=== PATIENT | male | born 1960 | race Caucasian/White ===

== ENCOUNTER 2016-09-02 15:06 | Emergency (ER) | payer OTHER ==
[~2016-09-02] VITALS: Ht 185.4 cm; Wt 72.6 kg
[~2016-09-02 15:06] MED LIST: ATIVAN1 MG PO; CLARITIN10 MG PO; FLONASE ALLERG9.9 ML NAS; HYDROCODONE BIT1 T11 PO; LOMOTIL 0.025 M1 TA1 PO; PREDNISONE10 MG PO; ROBITUSSIN AC 110 ML PO; VICODIN ES 7501 TAB PO; ZITHROMAX250 MG PO; ZOFRAN ODT4 MG SL
[2016-09-02] MEDS ORDERED: NAPROSYN500 MG PO (15:25)
[2016-09-02] MEDS ORDERED: 'PARAFON FORTE500 M1 PO (15:25)
== END 2016-09-02 15:55 | disposition home or self-care (01) ==
LOC: ED 15:06
DX: M54.14 Radiculopathy, thoracic region (principal); R03.0 Elevated blood-pressure reading, without diagnosis of hypertension; F41.9 Anxiety disorder, unspecified; F17.200 Nicotine dependence, unspecified, uncomplicated

== ENCOUNTER 2017-04-15 16:28 | Emergency (ER) | payer OTHER ==
[~2017-04-15] VITALS: Ht 185.4 cm; Wt 74.8 kg
[~2017-04-15 16:28] MED LIST changes: +'PARAFON FORTE500 M1 PO; +CYCLOBENZAPRINE10 MG PO; +FLEXERIL10 MG PO; +MEDROL DOSEPAK4 MG PO; +MOTRIN800 MG PO; +NAPROSYN500 MG PO; +NKHM; +ROBAXIN750 MG PO; +TRAMADOL HCL50 MG PO; +VICODIN 5/500 505 MG PO; +ZOFRAN4 MG PO
[2017-04-15 17:23] LABS: BASO # 0.1 10*3/uL (0.0-0.1); BASO % 0.4 % (0.0-1.0); EOS # 0.1 10*3/uL (0.0-0.4); EOS % 0.8 % (1.0-4.0); HEMOGLOBIN 13.3 g/dl (14.0-18.0); LYMPH # 2.2 10*3/uL (1.3-4.4); LYMPH % 13.9 % (27.0-41.0); MEAN CELL VOLUME 94.2 fl (80.0-94.0); MEAN CORPUSCULAR HGB 32.1 pg (27.0-31.0); MEAN CORPUSCULAR HGB CONC 34.1 g/dl (33.0-37.0); MEAN PLATELET VOLUME 11.7 fl (9.6-12.3); MONO % 6.1 % (3.0-9.0); NEUT # 12.3 10*3/uL (2.3-7.9); NEUT % 78.4 % (47.0-73.0); PLATELET COUNT AUTOMATED 166 10*3/uL (130-400); RED BLOOD COUNT 4.14 10*6/uL (4.50-5.90); RED CELL DISTRI WIDTH 13.2 % (0-14.5); WHITE BLOOD COUNT 15.7 10*3/uL (4.8-10.8)
[2017-04-15 17:35] LABS: BUN 13 mg/dl (7-24); CHLORIDE 105 mmol/L (98-107); CREATININE 0.79 mg/dL (0.70-1.30); POTASSIUM 3.9 mmol/L (3.5-5.1); SODIUM 139 mmol/L (136-145)
[2017-04-15] MEDS ORDERED: CLINDAMYCIN HC300 MG PO (19:36)
== END 2017-04-15 21:43 | disposition left against medical advice (07) ==
LOC: ED 16:28
PROVIDERS: Physician Assistant
DX: A41.9 Sepsis, unspecified organism (principal); L05.91 Pilonidal cyst without abscess; F17.200 Nicotine dependence, unspecified, uncomplicated; Z79.899 Other long term (current) drug therapy

== ENCOUNTER 2017-07-06 12:50 | Emergency (ER) | payer OTHER ==
[~2017-07-06] VITALS: Ht 185.4 cm; Wt 74.8 kg
[~2017-07-06 12:50] MED LIST changes: +CLINDAMYCIN HC300 MG PO
[2017-07-06] MEDS ORDERED: OMNICEF300 MG PO (13:56)
== END 2017-07-06 14:13 | disposition home or self-care (01) ==
LOC: ED 12:50
DX: J01.10 Acute frontal sinusitis, unspecified (principal); R03.0 Elevated blood-pressure reading, without diagnosis of hypertension; F17.200 Nicotine dependence, unspecified, uncomplicated

== ENCOUNTER 2017-11-24 17:38 | Emergency (ER) | payer OTHER ==
[~2017-11-24] VITALS: Wt 74.8 kg
[~2017-11-24 17:38] MED LIST changes: +OMNICEF300 MG PO
[2017-11-24] MEDS ORDERED: FLONASE ALLERG9.9 ML NS (17:53)
[2017-11-24] MEDS ORDERED: ZYRTEC10 MG PO (17:53)
[2017-11-24] MEDS ORDERED: AUGMENTIN 875875 MG PO (17:53)
== END 2017-11-24 18:10 | disposition home or self-care (01) ==
LOC: ED 17:38
DX: J01.10 Acute frontal sinusitis, unspecified (principal); Z79.899 Other long term (current) drug therapy

== ENCOUNTER 2017-12-21 02:01 | Inpatient (IN) | payer SELFPAY ==
[2017-12-21] VITALS (15 sets, daily range): BP systolic 123–156; BP diastolic 66–98
[~2017-12-21] VITALS: Ht 187.9 cm; Wt 79.4 kg
--- NOTE | ~2017-12-21 | CON ---
[place], [place] REPORT OF CONSULTATION NAME: HERLINDA MURPHY UNIT #: [id number] ROOM: [facility] DOCTOR: ENRICO DOWLING MD BIRTHDATE: [birth year] DOS: 12/21/2017 CHIEF COMPLAINT: "I have been here since the " HISTORY OF PRESENT ILLNESS: This is a 57-year-old white male who presented to the Emergency Room by private vehicle after what was a possible suicide attempt. Per the patient at that time, he had been consuming alcohol the entire day, drinking approximately 15-20 beers. 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 After realizing what he had done, he made certain he made it to the Emergency Room to be evaluated. The patient admits to a history of depression, but denies ever having a suicide attempt. At that time that he was more lucid in the Emergency Room, he denied that this was an attempt to commit suicide, it was just a mistake. PAST MEDICAL HISTORY: Remarkable for allergic rhinitis, hypertension, gastroenteritis, pilonidal cyst. MENTAL STATUS: My mental status was severely limited due to the fact that the patient just received an IV Ativan push. Nurses report that he has had increased visual hallucination and has been somewhat combative. For me, he was very somnolent and all I was able to get out of him was that he believes he has been here since the . He then rolled over and went back to sleep. Multiple attempts to reengage him were unsuccessful. DIAGNOSIS: Major depression, recurrent, by history. PLAN: Carmita Gamez is to be in later to evaluate him. At that point of time, if Carmita feels that he requires further inpatient stabilization, please have her notify me and I will be happy to admit him to the [facility] for further evaluation and treatment. If not, he should have outpatient followup, both for the depression and for the substance abuse if he is willing. ENRICO DOWLING MD CM:CONSTR:REPORT OF CONSULTATION 1013 12/21/17 1032 interface
[~2017-12-21 02:01] MED LIST changes: +AUGMENTIN 875875 MG PO; +FLONASE ALLERG9.9 ML NS; +ZYRTEC10 MG PO
[2017-12-21 02:54] LABS: BASO # 0.1 10*3/uL (0.0-0.1); EOS # 0.3 10*3/uL (0.0-0.4); EOS % 3.3 % (1.0-4.0); HEMATOCRIT 42.2 % (42.0-52.0); HEMOGLOBIN 14.7 g/dl (14.0-18.0); LYMPH # 3.3 10*3/uL (1.3-4.4); LYMPH % 38.8 % (27.0-41.0); MEAN CELL VOLUME 90.6 fl (80.0-94.0); MEAN CORPUSCULAR HGB 31.5 pg (27.0-31.0); MEAN CORPUSCULAR HGB CONC 34.8 g/dl (33.0-37.0); MEAN PLATELET VOLUME 10.8 fl (9.6-12.3); MONO # 0.6 10*3/uL (0.1-1.0); MONO % 7.1 % (3.0-9.0); NEUT # 4.2 10*3/uL (2.3-7.9); NEUT % 49.6 % (47.0-73.0); PLATELET COUNT AUTOMATED 190 10*3/uL (130-400); RED BLOOD COUNT 4.66 10*6/uL (4.50-5.90); WHITE BLOOD COUNT 8.4 10*3/uL (4.8-10.8)
[2017-12-21 03:11] LABS: ACETAMINOPHEN (TYLENOL) < 2.0 ug/ml (10-30); ALBUMIN 3.8 gm/dl (3.1-4.5); ALKALINE PHOSPHATASE 78 U/L (45-117); BUN 7 mg/dl (7-24); CHLORIDE 98 mmol/L (98-107); CREATININE 0.79 mg/dL (0.70-1.30); POTASSIUM 3.3 mmol/L (3.5-5.1); SGOT/AST 20 IU/L (3-35); SGPT/ALT 23 U/L (12-78); SODIUM 132 mmol/L (136-145); TOTAL PROTEIN 6.9 gm/dL (6.4-8.2); TROPONIN I < 0.015 ng/ml (<0.045)
[2017-12-21] MEDS ORDERED: ZESTRIL,PRINIVIL5 MG PO (04:57)
[2017-12-21 05:21] LABS: BILIRUBIN NEGATIVE (NEGATIVE); BLOOD NEGATIVE (NEGATIVE); CLARITY CLEAR (CLEAR); COLOR YELLOW (YELLOW); GLUCOSE NEGATIVE (NEGATIVE); KETONE NEGATIVE (NEGATIVE); LEUKO ESTERASE NEGATIVE (NEGATIVE); NITRITE NEGATIVE (NEGATIVE); PH 6.5 (5.0-9.0); SPECIFIC GRAVITY <= 1.005 (1.005-1.030); UROBILINOGEN 0.2 E.U./dl (0.2-1.0)
[2017-12-21 05:27] LABS: BACTERIA TRACE; RBC 0-2 rbc/hpf (0-2)
[2017-12-21 05:31] LABS: URINE AMPHETAMINES < 1000 (1000ng/ml); URINE BARBITURATES < 200 (200ng/ml); URINE BENZODIAZEPINES < 200 (200ng/ml); URINE CANNABINOIDS (THC) < 50 (50ng/ml); URINE COCAINE > 300 (300ng/ml); URINE METHADONE < 300 (300ng/ml); URINE OPIATES < 300 (300ng/ml)
[2017-12-21 05:32] LABS: URINE PHENCYCLIDINE < 25 (25ng/ml)
[2017-12-22] VITALS: BP 120/72; BP 123/75
[2017-12-22 04:00] VITALS: BP 116/80
[2017-12-22 06:33] LABS: BASO # 0.1 10*3/uL (0.0-0.1); BASO % 0.8 % (0.0-1.0); EOS # 0.4 10*3/uL (0.0-0.4); EOS % 3.8 % (1.0-4.0); HEMATOCRIT 43.5 % (42.0-52.0); HEMOGLOBIN 14.6 g/dl (14.0-18.0); LYMPH # 2.4 10*3/uL (1.3-4.4); LYMPH % 23.8 % (27.0-41.0); MEAN CELL VOLUME 93.3 fl (80.0-94.0); MEAN CORPUSCULAR HGB 31.3 pg (27.0-31.0); MEAN CORPUSCULAR HGB CONC 33.6 g/dl (33.0-37.0); MEAN PLATELET VOLUME 11.4 fl (9.6-12.3); MONO # 0.6 10*3/uL (0.1-1.0); MONO % 6.2 % (3.0-9.0); NEUT # 6.6 10*3/uL (2.3-7.9); NEUT % 64.9 % (47.0-73.0); PLATELET COUNT AUTOMATED 185 10*3/uL (130-400); RED BLOOD COUNT 4.66 10*6/uL (4.50-5.90); RED CELL DISTRI WIDTH 13.2 % (0-14.5); WHITE BLOOD COUNT 10.2 10*3/uL (4.8-10.8)
[2017-12-22 06:37] LABS: BUN 12 mg/dl (7-24); CHLORIDE 105 mmol/L (98-107); CHOLESTEROL 177 mg/dL (<200); CREATININE 1.01 mg/dL (0.70-1.30); POTASSIUM 4.2 mmol/L (3.5-5.1); SODIUM 135 mmol/L (136-145)
[2017-12-22 06:40] LABS: HDL CHOLESTEROL 46 mg/dl (40-60); LDL CHOLESTEROL 81 mg/dL (9-159); PHOSPHOROUS 3.1 mg/dL (2.5-4.9); TRIGLYCERIDES 250 mg/dl (<150); VLDL CHOLESTEROL 50 mg/dL (6-40)
[2017-12-22 08:00] VITALS: BP 110/63
[2017-12-22 12:00] VITALS: BP 143/83
== END 2017-12-22 13:13 | disposition home or self-care (01) | DRG 923 ==
LOC: ED 02:01 → ICCU 04:08 → EDHOLD 04:08 → ICCU 04:13
PROVIDERS: Emergency Medicine; Student in an Organized Health Care Education/Training Program
DX: T46 Poisoning by, adverse effect of and underdosing of agents primarily affecting the cardiovascular system (principal); E87.1 Hypo-osmolality and hyponatremia; F33.9 Major depressive disorder, recurrent, unspecified; T45.0X Poisoning by, adverse effect of and underdosing of antiallergic and antiemetic drugs; E87.6 Hypokalemia; F10.929 Alcohol use, unspecified with intoxication, unspecified; T50.902S Poisoning by unspecified drugs, medicaments and biological substances, intentional self-harm, sequela; F14.10 Cocaine abuse, uncomplicated; I10 Essential (primary) hypertension

== ENCOUNTER 2017-12-24 13:10 | Emergency (ER) | payer SELFPAY ==
[~2017-12-24] VITALS: Ht 185.4 cm; Wt 83.9 kg
[~2017-12-24 13:10] MED LIST changes: +ZESTRIL,PRINIVIL5 MG PO
[2017-12-24 14:06] LABS: BASO # 0.1 10*3/uL (0.0-0.1); BASO % 0.6 % (0.0-1.0); EOS # 0.1 10*3/uL (0.0-0.4); HEMATOCRIT 45.6 % (42.0-52.0); HEMOGLOBIN 15.8 g/dl (14.0-18.0); LYMPH # 2.1 10*3/uL (1.3-4.4); LYMPH % 15.4 % (27.0-41.0); MEAN CELL VOLUME 92.3 fl (80.0-94.0); MEAN CORPUSCULAR HGB CONC 34.6 g/dl (33.0-37.0); MEAN PLATELET VOLUME 11.4 fl (9.6-12.3); MONO # 0.6 10*3/uL (0.1-1.0); MONO % 4.4 % (3.0-9.0); NEUT # 10.9 10*3/uL (2.3-7.9); NEUT % 78.2 % (47.0-73.0); PLATELET COUNT AUTOMATED 189 10*3/uL (130-400); RED BLOOD COUNT 4.94 10*6/uL (4.50-5.90); WHITE BLOOD COUNT 13.9 10*3/uL (4.8-10.8)
[2017-12-24 14:32] LABS: ALBUMIN 4.1 gm/dl (3.1-4.5); ALKALINE PHOSPHATASE 97 U/L (45-117); BUN 11 mg/dl (7-24); CHLORIDE 104 mmol/L (98-107); CREATININE 0.94 mg/dL (0.70-1.30); POTASSIUM 4.4 mmol/L (3.5-5.1); SGOT/AST 21 IU/L (3-35); SGPT/ALT 32 U/L (12-78); SODIUM 138 mmol/L (136-145)
[2017-12-24] MEDS ORDERED: LOPRESSOR25 MG PO (15:32)
== END 2017-12-24 15:55 | disposition home or self-care (01) ==
LOC: ED 13:10
PROVIDERS: Emergency Medicine
DX: E86.0 Dehydration (principal); I10 Essential (primary) hypertension; F14.10 Cocaine abuse, uncomplicated; F17.200 Nicotine dependence, unspecified, uncomplicated; Z79.899 Other long term (current) drug therapy

== ENCOUNTER 2018-07-29 10:31 | Emergency (ER) | payer OTHER ==
[~2018-07-29] VITALS: Wt 77.1 kg
[~2018-07-29 10:31] MED LIST changes: +AMOXICILLIN500 M2 PO; +LOPRESSOR25 MG PO
[2018-07-29] MEDS ORDERED: NAPROSYN500 MG PO (11:28)
[2018-07-29] MEDS ORDERED: CYCLOBENZAPRINE10 MG PO (11:28)
[2018-07-29] MEDS ORDERED: PREDNISONE50 MG PO (11:28)
== END 2018-07-29 11:41 | disposition home or self-care (01) ==
LOC: ED 10:31
DX: S39.012A Strain of muscle, fascia and tendon of lower back, initial encounter (principal); I10 Essential (primary) hypertension; F17.200 Nicotine dependence, unspecified, uncomplicated; Z79.899 Other long term (current) drug therapy; X58.XXXA Exposure to other specified factors, initial encounter; Y93.89 Activity, other specified; Y92.89 Other specified places as the place of occurrence of the external cause; Y99.8 Other external cause status

== ENCOUNTER 2018-08-25 11:12 | Emergency (ER) | payer OTHER ==
[~2018-08-25] VITALS: Ht 185.4 cm; Wt 79.4 kg
[~2018-08-25 11:12] MED LIST changes: +PREDNISONE50 MG PO
[2018-08-25] MEDS ORDERED: NEURONTIN300 MG PO (12:44)
[2018-08-25] MEDS ORDERED: NAPROSYN500 MG PO (12:47)
== END 2018-08-25 12:54 | disposition home or self-care (01) ==
LOC: ED 11:12
DX: M54.16 Radiculopathy, lumbar region (principal); F17.200 Nicotine dependence, unspecified, uncomplicated; Z79.899 Other long term (current) drug therapy

== ENCOUNTER 2019-06-10 09:11 | Emergency (ER) | payer OTHER ==
[~2019-06-10] VITALS: Ht 185.4 cm; Wt 77.1 kg
[~2019-06-10 09:11] MED LIST changes: +NEURONTIN300 MG PO
[2019-06-10] MEDS ORDERED: PENICILLIN-VK500 MG PO (09:50)
[2019-06-10] MEDS ORDERED: NORCO 5-325 TA1 EACH PO ×3 (09:50→09:58)
== END 2019-06-10 10:04 | disposition home or self-care (01) ==
LOC: ED 09:11
DX: K04.7 Periapical abscess without sinus (principal); F17.200 Nicotine dependence, unspecified, uncomplicated; Z79.899 Other long term (current) drug therapy

== ENCOUNTER 2020-03-01 07:48 | Emergency (ER) | payer SELFPAY ==
[~2020-03-01] VITALS: Ht 180.3 cm; Wt 81.6 kg
[~2020-03-01 07:48] MED LIST changes: +NORCO 5-325 TA1 EACH PO; +PENICILLIN-VK500 MG PO
[2020-03-01 08:25] LABS: BASO # 0.1 10*3/uL (0.0-0.1); BASO % 0.7 % (0.0-1.0); EOS # 0.4 10*3/uL (0.0-0.4); EOS % 4.7 % (1.0-4.0); HEMATOCRIT 41.5 % (42.0-52.0); LYMPH # 2.2 10*3/uL (1.3-4.4); LYMPH % 25.2 % (27.0-41.0); MEAN CELL VOLUME 92.8 fl (80.0-94.0); MEAN CORPUSCULAR HGB 30.9 pg (27.0-31.0); MEAN CORPUSCULAR HGB CONC 33.3 g/dl (33.0-37.0); MEAN PLATELET VOLUME 11.2 fl (9.6-12.3); MONO # 0.7 10*3/uL (0.1-1.0); MONO % 7.5 % (3.0-9.0); NEUT # 5.4 10*3/uL (2.3-7.9); NEUT % 61.6 % (47.0-73.0); PLATELET COUNT AUTOMATED 197 10*3/uL (130-400); RED BLOOD COUNT 4.47 10*6/uL (4.50-5.90); RED CELL DISTRI WIDTH 13.1 % (0-14.5); WHITE BLOOD COUNT 8.7 10*3/uL (4.8-10.8)
[2020-03-01 08:39] LABS: ALBUMIN 3.5 gm/dl (3.1-4.5); ALKALINE PHOSPHATASE 72 U/L (45-117); BUN 14 mg/dl (7-24); CHLORIDE 109 mmol/L (98-107); CPK 49 U/L (39-308); CREATININE 0.93 mg/dL (0.70-1.30); POTASSIUM 4.2 mmol/L (3.5-5.1); SGOT/AST 8 IU/L (3-35); SGPT/ALT 25 U/L (12-78); SODIUM 138 mmol/L (136-145); TOTAL PROTEIN 6.7 gm/dL (6.4-8.2)
[2020-03-01 09:25] LABS: BILIRUBIN NEGATIVE (NEGATIVE); BLOOD NEGATIVE (NEGATIVE); CLARITY CLEAR (CLEAR); COLOR YELLOW (YELLOW); GLUCOSE NEGATIVE (NEGATIVE); KETONE NEGATIVE (NEGATIVE)
[2020-03-01 09:26] LABS: LEUKO ESTERASE NEGATIVE (NEGATIVE); NITRITE NEGATIVE (NEGATIVE); UROBILINOGEN 0.2 E.U./dl (0.2-1.0)
[2020-03-01 09:33] LABS: MUCOUS 1+; RBC 0-2 rbc/hpf (0-2)
== END 2020-03-01 09:59 | disposition home or self-care (01) ==
LOC: ED 07:48
PROVIDERS: Emergency Medicine
DX: B34.9 Viral infection, unspecified (principal); R19.7 Diarrhea, unspecified; E86.0 Dehydration; I10 Essential (primary) hypertension; Z79.899 Other long term (current) drug therapy

== ENCOUNTER → 2020-08-02 | Outpatient (CLI) | payer SELFPAY | END | disposition home or self-care (01) | LOC: COVID19 11:32 | PROVIDERS: ATTEND Internal Medicine | DX: Z20.828 Contact with and (suspected) exposure to other viral communicable diseases (principal) ==

== ENCOUNTER → 2021-05-16 | Outpatient (CLI) | payer OTHER | END | disposition home or self-care (01) | LOC: COVID19 15:12 | PROVIDERS: ATTEND Internal Medicine | DX: Z11.52 Encounter for screening for COVID-19 (principal) ==

== ENCOUNTER 2021-08-01 08:44 | Emergency (ER) | payer SELFPAY ==
[~2021-08-01] VITALS: Wt 72.6 kg
[2021-08-01] MEDS ORDERED: TYLENOL325 M1 PO (09:53)
[2021-08-01] MEDS ORDERED: PERIDEX118 ML MM (09:53)
[2021-08-01] MEDS ORDERED: NAPROXEN250 MG PO (09:53)
[2021-08-01] MEDS ORDERED: PENICILLIN-VK500 MG PO (09:53)
== END 2021-08-01 09:58 | disposition home or self-care (01) ==
LOC: ED 08:44
DX: K02.9 Dental caries, unspecified (principal); Z79.899 Other long term (current) drug therapy; I10 Essential (primary) hypertension

== ENCOUNTER 2021-09-11 13:27 | Emergency (ER) | payer OTHER ==
[~2021-09-11 13:27] MED LIST changes: +NAPROXEN250 MG PO; +PERIDEX118 ML MM; +TYLENOL325 M1 PO
[2021-09-12] MEDS ORDERED: DICYCLOMINE HCL10 MG PO (14:58)
== END 2021-09-11 14:20 | disposition left against medical advice (07) ==
LOC: ED 13:27
DX: R19.7 Diarrhea, unspecified (principal); Z53.21 Procedure and treatment not carried out due to patient leaving prior to being seen by health care provider

== ENCOUNTER 2021-09-12 09:27 | Emergency (ER) | payer OTHER ==
[~2021-09-12] VITALS: Ht 185.4 cm; Wt 77.1 kg
[2021-09-12 11:30] LABS: BASO # 0.1 10*3/uL (0.0-0.1); BASO % 0.6 % (0.0-1.0); EOS # 0.3 10*3/uL (0.0-0.4); EOS % 3.5 % (1.0-4.0); HEMATOCRIT 45.1 % (42.0-52.0); LYMPH # 2.6 10*3/uL (1.3-4.4); LYMPH % 30.9 % (27.0-41.0); MEAN CELL VOLUME 91.7 fl (80.0-94.0); MEAN CORPUSCULAR HGB 30.5 pg (27.0-31.0); MEAN CORPUSCULAR HGB CONC 33.3 g/dl (33.0-37.0); MEAN PLATELET VOLUME 11.2 fl (9.6-12.3); MONO # 0.5 10*3/uL (0.1-1.0); MONO % 6.5 % (3.0-9.0); NEUT # 4.8 10*3/uL (2.3-7.9); NEUT % 58.1 % (47.0-73.0); PLATELET COUNT AUTOMATED 212 10*3/uL (130-400); RED BLOOD COUNT 4.92 10*6/uL (4.50-5.90); RED CELL DISTRI WIDTH 12.8 % (0-14.5); WHITE BLOOD COUNT 8.3 10*3/uL (4.8-10.8)
[2021-09-12 11:45] LABS: ALBUMIN 3.8 gm/dl (3.1-4.5); ALKALINE PHOSPHATASE 82 U/L (45-117); BUN 10 mg/dl (7-24); CHLORIDE 105 mmol/L (98-107); CREATININE 0.81 mg/dL (0.70-1.30); LIPASE 84 U/L (73-393); POTASSIUM 4.4 mmol/L (3.5-5.1); SGOT/AST 13 IU/L (3-35); SGPT/ALT 26 U/L (12-78); SODIUM 135 mmol/L (136-145); TOTAL PROTEIN 7.4 gm/dL (6.4-8.2)
[2021-09-12] MEDS ORDERED: DICYCLOMINE HCL10 MG PO (14:58)
== END 2021-09-12 14:59 | disposition home or self-care (01) ==
LOC: ED 09:27
PROVIDERS: Physician Assistant
DX: R19.7 Diarrhea, unspecified (principal); R42 Dizziness and giddiness; R53.83 Other fatigue; Z79.899 Other long term (current) drug therapy

== ENCOUNTER → 2021-12-13 | Outpatient (CLI) | payer OTHER ==
[~2021-12-13] MED LIST changes: +DICYCLOMINE HCL10 MG PO
== END | disposition home or self-care (01) ==
LOC: MRI 07:59
PROVIDERS: ATTEND Nurse Practitioner
DX: M47.816 Spondylosis without myelopathy or radiculopathy, lumbar region (principal)

== ENCOUNTER → 2022-03-25 | Outpatient (CLI) | payer MEDICAID ==
[2022-03-25 13:33] LABS: BASO # 0.1 10*3/uL (0.0-0.1); BASO % 0.8 % (0.0-1.0); EOS # 0.7 10*3/uL (0.0-0.4); EOS % 4.7 % (1.0-4.0); HEMATOCRIT 44.7 % (42.0-52.0); MEAN CELL VOLUME 90.1 fl (80.0-94.0); MEAN CORPUSCULAR HGB 30.6 pg (27.0-31.0); MEAN PLATELET VOLUME 11.2 fl (9.6-12.3); MONO # 0.7 10*3/uL (0.1-1.0); MONO % 5.2 % (3.0-9.0); NEUT # 9.2 10*3/uL (2.3-7.9); NEUT % 66.4 % (47.0-73.0); PLATELET COUNT AUTOMATED 251 10*3/uL (130-400); RED BLOOD COUNT 4.96 10*6/uL (4.50-5.90); RED CELL DISTRI WIDTH 15.3 % (0-14.5); WHITE BLOOD COUNT 13.8 10*3/uL (4.8-10.8)
== END | disposition home or self-care (01) ==
LOC: RAD 12:54
PROVIDERS: ATTEND Orthopaedic Surgery
DX: M25.551 Pain in right hip (principal)

== ENCOUNTER → 2022-05-07 | Outpatient (CLI) | payer MEDICAID ==
[2022-05-07 13:55] LABS: BASO # 0.1 10*3/uL (0.0-0.1); BASO % 0.7 % (0.0-1.0); EOS # 0.4 10*3/uL (0.0-0.4); EOS % 3.2 % (1.0-4.0); HEMATOCRIT 42.9 % (42.0-52.0); LYMPH # 2.4 10*3/uL (1.3-4.4); LYMPH % 19.6 % (27.0-41.0); MEAN CELL VOLUME 91.7 fl (80.0-94.0); MEAN CORPUSCULAR HGB 30.8 pg (27.0-31.0); MEAN CORPUSCULAR HGB CONC 33.6 g/dl (33.0-37.0); MEAN PLATELET VOLUME 11.3 fl (9.6-12.3); MONO # 0.9 10*3/uL (0.1-1.0); MONO % 7.1 % (3.0-9.0); NEUT # 8.3 10*3/uL (2.3-7.9); NEUT % 67.8 % (47.0-73.0); PLATELET COUNT AUTOMATED 260 10*3/uL (130-400); RED BLOOD COUNT 4.68 10*6/uL (4.50-5.90); RED CELL DISTRI WIDTH 14.5 % (0-14.5); WHITE BLOOD COUNT 12.2 10*3/uL (4.8-10.8)
== END ==
LOC: LAB 13:21
PROVIDERS: ATTEND Orthopaedic Surgery
DX: M54.50 Low back pain, unspecified (principal)

== ENCOUNTER → 2022-10-22 | Outpatient (CLI) | payer OTHER ==
[~2022-10-22] MED LIST changes: +NORVASC5 MG PO; +PRILOSEC20 M1 PO; +TRAZODONE50 MG PO
== END | disposition home or self-care (01) ==
LOC: CARD 09-17 09:00
PROVIDERS: ATTEND Internal Medicine Cardiovascular Disease
DX: R07.9 Chest pain, unspecified (principal); R53.81 Other malaise

== ENCOUNTER → 2023-04-08 | Outpatient (CLI) | payer OTHER ==
[2023-04-08 14:28] LABS: ALKALINE PHOSPHATASE 95 U/L (46-116); BUN 7 mg/dl (9-23); CHLORIDE 104 mmol/L (98-107); POTASSIUM 3.7 mmol/L (3.4-5.1); SGPT/ALT 23 U/L (10-49); TOTAL PROTEIN 6.8 gm/dL (6.0-8.0)
== END | disposition home or self-care (01) ==
LOC: LAB 13:26
PROVIDERS: ATTEND Orthopaedic Surgery
DX: R53.83 Other fatigue (principal)

== ENCOUNTER → 2024-02-01 | Outpatient (CLI) | payer OTHER ==
[2024-02-01 10:02] LABS: BASO # 0.1 10*3/uL (0.0-0.1); BASO % 0.6 % (0.0-1.0); EOS # 0.5 10*3/uL (0.0-0.4); EOS % 4.5 % (1.0-4.0); HEMATOCRIT 47.6 % (42.0-52.0); LYMPH % 17.5 % (27.0-41.0); MEAN CELL VOLUME 91.5 fl (80.0-94.0); MEAN CORPUSCULAR HGB 30.2 pg (27.0-31.0); MEAN PLATELET VOLUME 11.2 fl (9.6-12.3); MONO # 0.7 10*3/uL (0.1-1.0); MONO % 5.7 % (3.0-9.0); NEUT # 8.1 10*3/uL (2.3-7.9); PLATELET COUNT AUTOMATED 236 10*3/uL (130-400); WHITE BLOOD COUNT 11.4 10*3/uL (4.8-10.8)
[2024-02-01 10:28] LABS: ALKALINE PHOSPHATASE 97 U/L (46-116); BUN 5 mg/dl (9-23); CHLORIDE 101 mmol/L (98-107); POTASSIUM 3.3 mmol/L (3.4-5.1); SGPT/ALT 32 U/L (5-49)
== END ==
LOC: LAB 09:42
PROVIDERS: ATTEND Podiatrist Foot & Ankle Surgery
DX: G57.83 Other specified mononeuropathies of bilateral lower limbs (principal)

== ENCOUNTER 2024-03-14 11:01 | Emergency (ER) | payer OTHER ==
[~2024-03-14] VITALS: Ht 185.4 cm; Wt 81.6 kg
[2024-03-14] MEDS ORDERED: Motrin,Rufen800 MG PO (11:36)
[2024-03-14] MEDS ORDERED: PENICILLIN VK500 MG PO (11:36)
[2024-03-14] MEDS ORDERED: Acetaminophen/Hydrocodone 5 MG/325 MG TABLET PO ONE (11:45)
[2024-03-14 11:49] LABS: BASO # 0.1 10*3/uL (0.0-0.1); BASO % 0.7 % (0.0-1.0); EOS # 0.3 10*3/uL (0.0-0.4); EOS % 2.3 % (1.0-4.0); HEMATOCRIT 42.7 % (42.0-52.0); LYMPH # 1.8 10*3/uL (1.3-4.4); LYMPH % 15.5 % (27.0-41.0); MEAN CELL VOLUME 90.9 fl (80.0-94.0); MEAN CORPUSCULAR HGB 30.9 pg (27.0-31.0); MEAN PLATELET VOLUME 11.3 fl (9.6-12.3); MONO # 0.7 10*3/uL (0.1-1.0); NEUT # 8.8 10*3/uL (2.3-7.9); PLATELET COUNT AUTOMATED 235 10*3/uL (130-400); RED CELL DISTRI WIDTH 15.3 % (0-14.5); WHITE BLOOD COUNT 11.8 10*3/uL (4.8-10.8)
[2024-03-14 12:09] LABS: BUN 7 mg/dl (9-23); CHLORIDE 101 mmol/L (98-107); POTASSIUM 3.3 mmol/L (3.4-5.1)
[2024-03-14] MEDS ORDERED: MAGNESIUM OXIDE 400 MG TAB PO ONE (12:15)
[2024-03-14] MEDS ORDERED: POTASSIUM CHLORIDE 20 MEQ TAB PO ONE (12:15)
[2024-03-14] MEDS ORDERED: PREDNISONE20 M1 PO ×2 (12:22→12:33)
[2024-03-14] MEDS ORDERED: methylPREDNISolone sod succ 125 MG VIAL IM ONE (12:25)
== END 2024-03-14 12:35 | disposition home or self-care (01) ==
LOC: ED 11:01
PROVIDERS: Nurse Practitioner Family
DX: S20.211A Contusion of right front wall of thorax, initial encounter (principal); E87.6 Hypokalemia; E83.42 Hypomagnesemia; E87.1 Hypo-osmolality and hyponatremia; I10 Essential (primary) hypertension; W54.1XXA Struck by dog, initial encounter; Y93.89 Activity, other specified; Y92.009 Unspecified place in unspecified non-institutional (private) residence as the place of occurrence of the external cause; Y99.8 Other external cause status

== ENCOUNTER → 2024-05-20 | Outpatient (CLI) | payer OTHER ==
[~2024-05-20] MED LIST changes: +Motrin,Rufen800 MG PO; +PENICILLIN VK500 MG PO; +PREDNISONE20 M1 PO
== END | disposition home or self-care (01) ==
LOC: CT 05-19 11:00
PROVIDERS: ATTEND Internal Medicine
DX: R91.8 Other nonspecific abnormal finding of lung field (principal); F17.210 Nicotine dependence, cigarettes, uncomplicated

== ENCOUNTER 2024-08-11 06:42 | Emergency (ER) | payer OTHER ==
[~2024-08-11] VITALS: Ht 185.4 cm; Wt 83.9 kg
[2024-08-11] MEDS ORDERED: Acetaminophen/Oxycodone 5 MG/325 MG TABLET PO ONE (07:05)
[2024-08-11] MEDS ORDERED: DIAZEPAM 5 MG TAB PO ONE (07:05)
[2024-08-11] MEDS ORDERED: MELOXICAM15 MG PO (07:41)
[2024-08-11] MEDS ORDERED: PREDNISONE20 M1 PO (07:41)
[2024-08-11] MEDS ORDERED: CYCLOBENZAPRINE10 MG PO (07:41)
== END 2024-08-11 07:50 | disposition home or self-care (01) ==
LOC: ED 06:42
DX: M54.2 Cervicalgia (principal); M43.6 Torticollis; I10 Essential (primary) hypertension